=== PATIENT | male | born 1955 | race Caucasian/White ===

== ENCOUNTER 2017-05-04 12:02 | Emergency (ER) | payer BC ==
[~2017-05-04] VITALS: Ht 177.8 cm; Wt 99.8 kg
[2017-05-04 12:10] VITALS: BP_SYST 159
--- NOTE | 2017-05-04 14:18 | NUR ---
Patient to ER bed 2 to gown for evaluation. Side rails up. Report given to Timmy CÁRDENAS.
--- NOTE | 2017-05-04 14:20 | NUR ---
ER at bedside examining patient.
--- NOTE | 2017-05-04 14:22 | NUR ---
Pt presents to ER c/o urinary retention, passing clots, dysuria. Pt denies N/V/D/chest pain/sob. Pt reports medical history of prostate abnormalities and hyperlipidemia. Pt reports allergy to ciproflaxacin. Pt is AOX4, no acute distress noted.
--- NOTE | 2017-05-04 14:25 | NUR ---
Attempted to place 16Fr bazan catheter, resistance met less than 1cm into meatus. Discussed with Dr. Baird.
--- NOTE | 2017-05-04 15:10 | NUR ---
# 16 FR Connolly catheter with use of sterile technique. Immediate return of 2 cc grossly boody urine noted. Bedside drainage bag placed below level of bladder. Urine sample collected and sent to lab. Pt tolerated procedure well. Bladder irrigated with 200mL of NS, only 20mL bloody urine and clot returned with aspiration efforts. Disccused with Dr. Baird.
[2017-05-04] MEDS ORDERED: LIDOCAINE JELLY 5 ML TUBE MM ONE ×2 (15:30→18:00)
[2017-05-04 15:31] LABS: BASOPHILS # (AUTO) 0.1 K/uL (0.0-0.2); BASOPHILS % (AUTO) 0.5 % (0.0-2.0); EOSINOPHILS % (AUTO) 0.2 % (0.0-4.0); HEMOGLOBIN 13.8 g/dL (14.0-18.0); LYMPHOCYTES % (AUTO) 12.1 % (20.5-51.5); MEAN CORPUSCULAR HEMOGLOBIN 29 pg (27-31); MEAN CORPUSCULAR HGB CONC 33 % (32-36); MEAN CORPUSCULAR VOLUME 89 fL (79.0-98.0); MONOCYTES # (AUTO) 0.7 K/uL (0.0-1.0); MONOCYTES % (AUTO) 4.1 % (1.7-9.3); NEUTROPHILS # (AUTO) 13.8 K/uL (1.8-7.7); PLATELET COUNT (AUTO) 411 K/uL (130-430); RED BLOOD CELL COUNT(AUTO) 4.73 MIL/uL (4.2-6.2); RED CELL DISTRIBUTION WIDTH 12.6 % (9.0-15.0); WHITE BLOOD COUNT (AUTO) 16.6 K/uL (4.8-10.8)
[2017-05-04 15:56] LABS: PROTHROMBIN TIME 10.1 SECS (9.5-12.5)
[2017-05-04 16:17] LABS: NEUTROPHILS % (AUTO) 83.1 % (40.0-70.0)
--- NOTE | 2017-05-04 16:22 | NUR ---
16 FR cath removed with resistance to removal catheter met when the balloon was 1cm from the meatus. Dr. Baird advised. [facility] to attempt to [facility].
[2017-05-04] MEDS ORDERED: cefTRIAXone 1 GM in D5W 50 ML IV ONE (19:45)
[2017-05-04] MEDS ORDERED: cefTRIAXone 1 GM VIAL ONE (20:17)
[2017-05-04 20:40] LABS: BILIRUBIN,URINE NEGATIVE (NEGATIVE); BLOOD, URINE 3+ (NEGATIVE); CLARITY/URINE CLOUDY (CLEAR); COLOR,URINE RED (YELLOW); GLUCOSE,URINE NEGATIVE (NEGATIVE); KETONES,URINE NEGATIVE (NEGATIVE); LEUKOCYTE ESTERASE ,URINE NEGATIVE (NEGATIVE); NITRITE, URINE NEGATIVE (NEGATIVE); PH,URINE 5.5 (5.0-8.0); PROTEIN URINE 1+ (NEGATIVE); UROBILINOGEN,URINE 0.2 (0.2-1.0)
[2017-05-04 20:41] LABS: BACTERIA,URINE FEW /HPF (None Seen); RBC,URINE >100 /HPF (0-3)
[2017-05-04 20:42] LABS: MUCUS,URINE None Seen /LPF (None Seen)
[2017-05-04 21:16] VITALS: BP_SYST 145
--- NOTE | 2017-05-04 21:16 | NUR ---
Patient given written and verbal discharge instructions and verbalizes understanding. ER MD discussed with patient the results and treatment provided. Patient in stable condition. ID arm band removed. Patient educated on pain management and to follow up with PMD. Pain Scale 0/10. Opportunity for questions provided and answered. Pt discharged to leg bag. Will follow up with urologist in the morning. Addendum: 05/05/17 at 0107 by PONCE Rx of Bactrim given.
== END 2017-05-04 21:16 | disposition home or self-care (01) ==
LOC: EDBD 12:02 → SED 12:02
DX: N99.821 Postprocedural hemorrhage of a genitourinary system organ or structure following other procedure (principal); R31.9 Hematuria, unspecified; I10 Essential (primary) hypertension; E78.00 Pure hypercholesterolemia, unspecified; Z88.1 Allergy status to other antibiotic agents
CPT/HCPCS: 36415; 51702; 81000; 85025; 85610; 96365; 99284; J0696; J7060